=== PATIENT | male | born 1970 | race American Indian/Alaskan Native ===

== ENCOUNTER 2018-04-02 15:53 | Emergency (ER) | payer OTHER ==
[2018-04-02] MEDS ORDERED: NORCO 5/325 PO ONE (17:27)
[2018-04-02] MEDS ORDERED: MOTRIN PO ONE (17:27)
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
[2018-04-02 21:05] VITALS: BP 136/83
== END 2018-04-02 21:02 | disposition home or self-care (01) ==
LOC: ED 15:53
DX: R07.89 Other chest pain (principal); M54.2 Cervicalgia; M25.552 Pain in left hip; I10 Essential (primary) hypertension; F17.200 Nicotine dependence, unspecified, uncomplicated
CPT/HCPCS: 71046; 72040; 72170; 99284